=== PATIENT | female | born 1980 | race Caucasian/White ===

== ENCOUNTER 2018-01-03 19:24 | Emergency (ER) | payer OTHER ==
[2018-01-03] MEDS: morphine 4 MG/ML VIAL IV (20:16)
[2018-01-03] MEDS: ONDANSETRON 4 MG INJ IV (20:16)
[2018-01-03] MEDS: SOD CHLORIDE 0.9% 1,000 ML IV (20:18)
[2018-01-03 20:22] LABS: ADD MAN DIFF? NO
[2018-01-03 20:23] LABS: WHITE BLOOD COUNT 14.5 10^3/ul (4.8-10.8)
[2018-01-03 20:23] LABS: BASOPHIL # 0.1 10^3/ul (0.0-0.1); BASOPHILS % 0.5 % (0.0-2.0); EOSINOPHILS # 0.3 10^3/ul (0.0-0.5); EOSINOPHILS % 2.3 % (0.0-7.0); HEMOGLOBIN 13.1 g/dl (12.0-16.0); LYMPHOCYTES # 3.4 10^3/ul (0.8-2.9); LYMPHOCYTES % 23.3 % (15.0-51.0); MEAN CORPUSCULAR HEMOGLOBIN 27.6 pg (29.0-33.0); MEAN CORPUSCULAR HGB CONC 32.8 g/dl (32.0-37.0); MEAN CORPUSCULAR VOLUME 84.2 fl (82.0-101.0); MEAN PLATELET VOLUME 9.5 fl (7.4-10.4); MONOCYTE # 0.8 10^3/ul (0.3-0.9); MONOCYTES % 5.5 % (0.0-11.0); NEUTROPHIL # 9.9 10^3/ul (1.6-7.5); NEUTROPHILS % 68.1 % (39.0-77.0); PLATELET COUNT 354 10^3/UL (140-415); RED BLOOD COUNT 4.75 10^6/ul (4.20-5.40); RED CELL DISTRIBUTION WIDTH 13.4 % (11.5-14.5)
[2018-01-03 20:31] LABS: ADD UMIC YES; UR ASCORBIC ACID NEGATIVE (NEGATIVE); UR BACTERIA FEW /HPF (NONE SEEN); UR BILIRUBIN (Dip) NEGATIVE (NEGATIVE); UR BLOOD (Dip) 2+ mg/dL (NEGATIVE); UR CLARITY CLOUDY (CLEAR); UR COLOR YELLOW (YELLOW); UR GLUCOSE (Dip) NEGATIVE (NEGATIVE); UR KETONES (Dip) NEGATIVE (NEGATIVE); UR LEUKOCYTE ESTERASE (Dip) NEGATIVE Leu/ul (NEGATIVE); UR MUCUS FEW /HPF (NONE SEEN); UR NITRITE (Dip) NEGATIVE (NEGATIVE); UR RBC 2 /HPF (0-5); UR SPECIFIC GRAVITY (Dip) 1.024 (1.003-1.030); UR SQUAMOUS EPITHELIAL CELL MODERATE /HPF (FEW); UR TOTAL PROTEIN (Dip) NEGATIVE (NEGATIVE); UR UROBILINOGEN (Dip) NEGATIVE (NEGATIVE); UR WBC 2 /HPF (0-5)
[2018-01-03 20:42] LABS: ALANINE AMINOTRANSFERASE 23 IU/L (13-69); ALBUMIN 3.9 g/dl (3.3-4.9); ALBUMIN/GLOBULIN RATIO 1.08; ALKALINE PHOSPHATASE 81 IU/L (42-121); ANION GAP 11 (5-13); ASPARTATE AMINO TRANSFERASE 24 IU/L (15-46); BLOOD UREA NITROGEN 11 mg/dl (7-20); CALCIUM 9.7 mg/dl (8.4-10.2); CARBON DIOXIDE 23 mmol/L (21-31); CHLORIDE 107 mmol/L (97-110); CREATININE 0.64 mg/dl (0.44-1.00); Estimated GFR > 60 mL/min (>60); GLUCOSE 102 mg/dl (70-220); INR 0.95; LIPASE 92 U/L (23-300); POTASSIUM 4.2 mmol/L (3.5-5.1); PROTIME 12.8 Sec (11.9-14.9); SODIUM 141 mmol/L (135-144); TOTAL PROTEIN 7.5 g/dl (6.1-8.1)
[2018-01-03 20:43] LABS: PARTIAL THROMBOPLASTIN TIME 26.5 Sec (23.0-35.0)
[2018-01-03] MEDS: KETOROLAC 30 MG INJ IV (21:42)
== END 2018-01-03 22:17 | disposition home or self-care (01) ==
LOC: FTE 19:24
DX: R10.11 Right upper quadrant pain (principal); R11.10 Vomiting, unspecified; R10.2 Pelvic and perineal pain
CPT/HCPCS: 36415; 74176; 76705; 80053; 81001; 81025; 83690; 85025; 85610; 85730; 96361; 96374; 96375; 99285-25

== ENCOUNTER 2018-03-17 18:26 | Emergency (ER) | payer OTHER ==
[2018-03-17] MEDS: DIPHENHYDRAMINE 50 MG INJ IV (20:58)
[2018-03-17] MEDS: ONDANSETRON 4 MG INJ IV (20:58)
[2018-03-17] MEDS: SOD CHLORIDE 0.9% 1,000 ML IV (20:58)
[2018-03-17] MEDS: morphine 4 MG/ML VIAL IV (20:58)
[2018-03-17 21:11] LABS: ADD MAN DIFF? NO
[2018-03-17 21:13] LABS: BASOPHIL # 0.1 10^3/ul (0.0-0.1); BASOPHILS % 0.5 % (0.0-2.0); EOSINOPHILS # 0.3 10^3/ul (0.0-0.5); EOSINOPHILS % 2.8 % (0.0-7.0); HEMATOCRIT 38.4 % (37.0-47.0); HEMOGLOBIN 12.5 g/dl (12.0-16.0); LYMPHOCYTES # 3.1 10^3/ul (0.8-2.9); LYMPHOCYTES % 26.1 % (15.0-51.0); MEAN CORPUSCULAR HEMOGLOBIN 27.2 pg (29.0-33.0); MEAN CORPUSCULAR HGB CONC 32.6 g/dl (32.0-37.0); MEAN CORPUSCULAR VOLUME 83.7 fl (82.0-101.0); MEAN PLATELET VOLUME 9.3 fl (7.4-10.4); MONOCYTE # 0.7 10^3/ul (0.3-0.9); MONOCYTES % 5.4 % (0.0-11.0); NEUTROPHIL # 7.8 10^3/ul (1.6-7.5); NEUTROPHILS % 64.9 % (39.0-77.0); PLATELET COUNT 315 10^3/UL (140-415); RED BLOOD COUNT 4.59 10^6/ul (4.20-5.40); RED CELL DISTRIBUTION WIDTH 13.7 % (11.5-14.5)
[2018-03-17 21:29] LABS: ALANINE AMINOTRANSFERASE 23 IU/L (13-69); ALBUMIN 4.3 g/dl (3.3-4.9); ALBUMIN/GLOBULIN RATIO 1.22; ALKALINE PHOSPHATASE 71 IU/L (42-121); ANION GAP 10 (5-13); ASPARTATE AMINO TRANSFERASE 29 IU/L (15-46); BILIRUBIN,INDIRECT 0.1 mg/dl (0-1.1); BILIRUBIN,TOTAL 0.1 mg/dl (0.2-1.3); BLOOD UREA NITROGEN 9 mg/dl (7-20); CALCIUM 9.6 mg/dl (8.4-10.2); CARBON DIOXIDE 25 mmol/L (21-31); CHLORIDE 105 mmol/L (97-110); CREATININE 0.61 mg/dl (0.44-1.00); Estimated GFR > 60 mL/min (>60); GLUCOSE 86 mg/dl (70-220); LIPASE 77 U/L (23-300); POTASSIUM 3.6 mmol/L (3.5-5.1); SODIUM 140 mmol/L (135-144); TOTAL PROTEIN 7.8 g/dl (6.1-8.1)
[2018-03-17 21:34] LABS: ADD UMIC YES; UR ASCORBIC ACID NEGATIVE (NEGATIVE); UR BACTERIA FEW /HPF (NONE SEEN); UR BILIRUBIN (Dip) NEGATIVE (NEGATIVE); UR BLOOD (Dip) 1+ mg/dL (NEGATIVE); UR CLARITY SLIGHTLY CLOUDY (CLEAR); UR COLOR YELLOW (YELLOW); UR GLUCOSE (Dip) NEGATIVE (NEGATIVE); UR KETONES (Dip) TRACE mg/dL (NEGATIVE); UR LEUKOCYTE ESTERASE (Dip) NEGATIVE Leu/ul (NEGATIVE); UR MUCUS FEW /HPF (NONE SEEN); UR NITRITE (Dip) NEGATIVE (NEGATIVE); UR RBC 6 /HPF (0-5); UR SPECIFIC GRAVITY (Dip) 1.019 (1.003-1.030); UR SQUAMOUS EPITHELIAL CELL MODERATE /HPF (FEW); UR TOTAL PROTEIN (Dip) NEGATIVE (NEGATIVE); UR UROBILINOGEN (Dip) NEGATIVE (NEGATIVE); UR WBC 3 /HPF (0-5)
[2018-03-17] MEDS: KETOROLAC 30 MG INJ IV (22:14)
[2018-03-17] MEDS: FAMOTIDINE 20 MG INJ IV (23:19)
[2018-03-17] MEDS: DEXAMETHASONE 10 MG/ML 1 ML INJ IV (23:19)
[2018-03-17] MEDS: ONDANSETRON (ODT) 4 MG TAB ODT (23:39)
[2018-03-17] MEDS: DIPHENHYDRAMINE 25 MG CAP PO (23:39)
== END 2018-03-18 00:03 | disposition home or self-care (01) ==
LOC: FTE 03-18 00:03
DX: K80.20 Calculus of gallbladder without cholecystitis without obstruction (principal)
CPT/HCPCS: 36415; 74176; 76705; 80053; 81001; 81003; 81025; 83690; 85025; 96361; 96374; 96375; 96376; 99285-25

== ENCOUNTER 2018-05-05 08:06 | Emergency (ER) | payer OTHER | END 2018-05-05 09:11 | disposition home or self-care (01) | LOC: FTE 08:06 | DX: J02.9 Acute pharyngitis, unspecified (principal) | CPT/HCPCS: 99283; Z7502 ==

== ENCOUNTER 2018-05-17 06:25 | Day surgery (SDC) | payer OTHER ==
[2018-05-17] MEDS ORDERED: METOCLOPRAMIDE 10 MG INJ (07:00)
[2018-05-17] MEDS ORDERED: CLINDAMYCIN 900 MG/50 ML D5W IVPB IVPB (07:00)
[2018-05-17] MEDS ORDERED: LIDOCAINE 2% (SDV) 5 ML INJ (07:00)
[2018-05-17] MEDS ORDERED: DEXAMETHASONE 4 MG/ML 5 ML INJ (07:00)
[2018-05-17] MEDS ORDERED: ROPIVACAINE 0.5 % 30 ML VIAL (07:00)
[2018-05-17] MEDS ORDERED: PROPOFOL 200 MG INJ (07:00)
[2018-05-17] MEDS ORDERED: FENTAnyl 50 MCG/ML VIAL (07:58)
[2018-05-17] MEDS ORDERED: MIDAZOLAM 1 MG/ML 2 ML INJ (07:59)
[2018-05-17] MEDS ORDERED: ONDANSETRON 4 MG INJ (07:59)
[2018-05-17] MEDS ORDERED: SUCCINYLCHOLINE CHLORIDE 100 MG/5 ML SYG IV (08:05)
[2018-05-17] MEDS ORDERED: ROCURONIUM 50 MG INJ (08:05)
[2018-05-17] MEDS ORDERED: CEFAZOLIN 1 GM INJ (08:05)
[2018-05-17] MEDS ORDERED: HYDROmorphONE 2 MG/ML SYG (08:51)
[2018-05-17] MEDS ORDERED: HYDROmorphONE 1 MG/5 ML IV SYRINGE IV ×2 (09:30)
[2018-05-17] MEDS ORDERED: DIPHENHYDRAMINE 50 MG INJ IV (09:30)
[2018-05-17] MEDS ORDERED: hydrALAzine 20 MG INJ IV (09:30)
[2018-05-17] MEDS ORDERED: LABETALOL HCL 20MG INJ IV (09:30)
[2018-05-17] MEDS ORDERED: FENTAnyl 50 MCG/ML VIAL IV ×2 (09:30)
[2018-05-17] MEDS: BUPIVACAINE 0.5%/EPI (SDV) 30 ML INJ (10:11)
[2018-05-17] MEDS ORDERED: LIDOCAINE 1%/EPI (1:100,000) (MDV) 20 ML (10:54)
[2018-05-17] MEDS ORDERED: ONDANSETRON 4 MG INJ IV (11:00)
[2018-05-17] MEDS ORDERED: IBUPROFEN 600 MG TAB PO (11:00)
[2018-05-17] MEDS ORDERED: morphine 2 MG INJ IV (11:00)
[2018-05-17] MEDS ORDERED: HYDROCODONE/APAP (5/325) TAB PO (11:00)
[2018-05-17] MEDS ORDERED: BUPIVACAINE 0.5%/EPI (SDV) 30 ML INJ (11:17)
[2018-05-17] MEDS: ONDANSETRON 4 MG INJ IV (11:24)
[2018-05-17] MEDS: MEPERIDINE 25 MG INJ IV (11:24)
[2018-05-17] MEDS: LEVALBUTEROL (NEB) 1.25 MG/0.5 ML AMP HHN (11:42)
[2018-05-17] MEDS: IPRATROPIUM (NEB) 0.5 MG/2.5 ML AMP HHN (11:42)
[2018-05-17] MEDS: HYDROmorphONE 1 MG/5 ML IV SYRINGE IV (11:57)
[2018-05-17] MEDS: HYDROCODONE/APAP (5/325) TAB PO (12:10)
[2018-05-17] MEDS: MIDAZOLAM 1 MG/ML 2 ML INJ IV (12:40)
== END 2018-05-17 13:30 | disposition home or self-care (01) ==
LOC: SDS 06:25
DX: K80.20 Calculus of gallbladder without cholecystitis without obstruction (principal); G47.30 Sleep apnea, unspecified
CPT/HCPCS: 47562; 88304; 94664